=== PATIENT | female | born 1965 | race Caucasian/White ===

== ENCOUNTER 2020-11-03 10:20 | Outpatient (CLI) | payer OTHER ==
--- NOTE | 2020-11-03 16:25 | XRAY Report ---
PROCEDURE: Lumbar Spine 2 View INDICATIONS: SCIATICA RT SIDE TECHNIQUE: 2 views of the lumbar spine were acquired. COMPARISON: None. FINDINGS: Bones: There are multilevel degenerative changes. There is disc disease at L4-5 and L5-S1. Rightward curvature of the lumbar spine is seen. The sacroiliac joints are normal. Soft tissues: Overlying bow el gas pattern is normal. No suspicious soft tissue calcifications. IMPRESSION: 1. Multilevel degenerative changes of the lumbar spine. 2. Disc disease at L4-5 and L5-S1. Reviewed by: Stan Horne on 11/03/2020 4:24 PM PDT Approved by: Stan Horne on 11/03/2020 4:24 PM PDT Station ID: [id number]
== END 2020-11-03 10:21 | disposition home or self-care (01) ==
LOC: MERGE 10:20 → DI.S 10:20
PROVIDERS: ATTEND Nurse Practitioner Family
DX: M51.36 Other intervertebral disc degeneration, lumbar region (principal); M51.37 Other intervertebral disc degeneration, lumbosacral region

== ENCOUNTER 2020-12-22 14:57 | Outpatient (CLI) | payer OTHER ==
--- NOTE | 2021-01-02 09:19 | Mammography Report ---
BILATERAL DIGITAL SCREENING MAMMOGRAM 3D/2D WITH EXAGGERATED CC: 12/22/2020 CLINICAL: Family history of breast cancer. Comparison is made to exams dated: 01/25/2017 mammogram, 08/02/2009 mammogram, and 11/17/2010 mammogra m - [facility]. The tissue of both breasts is heterogeneously dense. Th is may lower the sensitivity of mammography. No significant masses, calcifications, or other findings are seen in either breast. There has been no significant interval change. IMPRESSION: NEGATIVE There is no mammographic evidence of malignancy. A 1 year screening mammogram is recommended. This exam was interpreted at Station ID: [id number]. NOTE: For mammograms, a report in lay terms will be sent to the patient. Approximately 15% of breast malignancies will not be visualized mammographically. In the management of a palpable breast mass, a negative mammogram must not discourage biopsy of a clinically suspicious lesion. Electronically Signed By: Jorge Vieyra M.D. [email or web address]/penrad:12/30/2020 11:53:14 ACR BI-RADS Category 1: Negative 3341F PARENCHYMAL PATTERN: (D) - The breast(s) demonstrate(s) heterogeneously dense fibroglandular partalita chiu. BI-RADS CATEGORY: (1) - 1 RECOMMENDATION: (ANNUAL) - Recommend routine annual screening mammography. [id number] 1 year screening LATERALITY: (B)
== END 2020-12-22 14:58 | disposition home or self-care (01) ==
LOC: DI.S 14:57
PROVIDERS: ATTEND Nurse Practitioner Family
DX: Z12.31 Encounter for screening mammogram for malignant neoplasm of breast (principal); Z80.3 Family history of malignant neoplasm of breast

== ENCOUNTER 2021-02-16 10:05 | Outpatient (CLI) | payer OTHER ==
--- NOTE | 2021-02-16 15:25 | XRAY Report ---
PROCEDURE: Hips 2V BILAT INDICATIONS: RIGHT SIDE SCDIATICA TECHNIQUE: 2 views of the hip were acquired. COMPARISON: None FINDINGS: Bones: No fractures or dislocations. No suspicious bony lesions. The visualized pelvic ring appear s intact. Severe joint space narrowing is noted at the right hip with areas of subchondral sclerosis and lucency. There is [id number] appearance. Minimal narrowing is noted on the left. Soft tissues: No suspicious soft tissue calcifications or masses. 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 Reviewed by: Conchita Snyder MD on 02/16/2021 3:24 PM PST Approved by: Conchita Snyder MD on 02/16/2021 3:24 PM PST Station ID: [id number]
== END 2021-02-16 10:06 | disposition home or self-care (01) ==
LOC: DI.S 10:05
PROVIDERS: ATTEND Nurse Practitioner Family
DX: M16.11 Unilateral primary osteoarthritis, right hip (principal)

== ENCOUNTER 2021-08-24 11:54 | Outpatient (CLI) | payer OTHER ==
[2021-08-24 14:51] LABS: CALCIUM 9.4 mg/dL (8.5-10.3); POTASSIUM 4.2 mmol/L (3.5-5.0)
[2021-08-24 15:28] LABS: CREATININE 0.8 mg/dL (0.4-1.0)
== END 2021-08-24 11:55 | disposition home or self-care (01) ==
LOC: LAB.S 11:54
PROVIDERS: ATTEND Nurse Practitioner Family
DX: Z51.81 Encounter for therapeutic drug level monitoring (principal)
CPT/HCPCS: 36415; 80048